=== PATIENT | female | born 2005 | race Caucasian/White ===

== ENCOUNTER 2024-12-05 00:30 | Emergency (ER) | payer SELFPAY ==
--- OUTSIDE RECORDS SUMMARY | 2024-12-05 00:33 | XMS REPORT | Continuity of Care Document ---
Author Name Unknown Address [address] [facility] [address] [place] [address] [facility] [place] Address [address] [facility] [address] [place] [address] Care Team Providers Care Medical Diagnostic Radiographer Name Role Phone Pcp, Patient Does Not Have A Primary Care Physic sneha Campaigns, Generic Provider Attending Clinician ELA Schmidt Attending Clinician ELA Santillan Attending Clinician Ela Santillan DO Attending Clinician [phone] Payers Payer Name Policy Type Policy Number Effective Date Expirati on Date Source Allergies, Adverse Reactions, Alerts Allergy Name Allergy Type Status Severity Reaction(s) Onset Date Inactive Date Treating Clinician Comments Source ORANGE [employer] INGREDI Active Other-Cmnt 2023-08 0-03 00:00: 00 [facility] [place] Propensi ty to adverse reaction s Active Other - See comments 2023-08 0-03 00:00: 00 [facility] Social History Social Habit Start Date Stop Date Quantity Comments Source [facility] at 2005 00:00:00 2005 00:00:00 [facility] Smoking Status Start Date Stop Date Source Tobacco smoking consumption unknown [facility] Vital Signs Vital Name Observation Time Observation Value Comments S rosa Systolic blood pressure 2024-09-24 15:10:00 116 mm[Hg] [facility] Diastolic blood pressure 2024-09-24 15:10:00 79 mm[Hg] [facility] Heart rate 2024-09-24 15:10:00 90 /min [facility] Body temperature 2024-09-24 15:10:00 37.28 Elenita [facility] Respiratory rate 2024-09-24 15:10:00 16 /min [facility] Body height 2024-09-24 15:10:00 157.5 cm [facility] Body weight 2024-09-24 15:10:00 60.328 kg [facility] BMI 2024-09-24 15:10:00 24.33 kg/m2 [facility] Oxygen saturation in Arterial blood by Pulse oximetry 2024-09-24 15:10:00 100 /min [place] [facility] Encounters Start Date/Time End Date/Time Encounter Type Admission Type Attending Clinicians Care Facility Care Department Encounter ID Source 2024-10-06 00:00:00 2024-10-06 11:37:00 Letter (Out) Campaigns, Generic Provider Campaigns, Generic Provider [facility] [id number] [facility] 2024-09-24 09:12:00 2024-09-24 09:55:00 Emergency X ELA CHANG [facility] ERT [id number] [facility] 2024-09-24 09:12:00 2024-09-24 09:55:00 Emergency Ela Chang [facility] [id number] [facility] Notes Date/Time Note Provider Source 2024-09-24 09:38:08 Patient given discharge instructions on influenza symptoms. No prescriptions given. Advised to follow up with pcp. Pt left ER ambulatory with adult. No signs of distress. [facility] 2024-09-24 09:10:09 Patient states: "Yesterday my body was very sore and it got really bad this morning. 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: Medication (comment) BIOINFORMAT[employer] COMPUTER SCIENTIST treatment comments: dayquil at 0800 Travel and Exposure Screening: Symptoms Does patient have any of these symptoms?: (not recorded) Exposure Screening Has patient had contact with someone with a communicable disease in the last month?: (not recorded) Diseases exposed to:: (not recorded) Is Patient ?: (not recorded) Exposure Date: (not recorded) Chief Complaint: Chief Complaint Patient presents with Body Aches History of Present Illness: The patient presents from home for evaluation for cough, fever as well as body aches for the past 2 days. She does admit to sick contacts at home. She had some DayQuil around 8:00 this morning. She does not smoke. No history of asthma. She has had decreased oral intake but is drinking. No ear pain. No throat pain. Here for evaluation. Past Medical History/Immunizations: History reviewed. No pertinent past medical history. Tetanus received in last 5 years: Yes Allergies: Allergies Allergen Reactions [place] Other - See comments Past Social History: Substance & Sexual Activity No substance use or sexual activity history on file. Past Surgical History: History reviewed. No pertinent surgical history. Review of Systems: Review of Systems Constitutional: Positive for chills and fever. HENT: Negative for sore throat. Respiratory: Positive for cough. Cardiovascular: Negative for chest pain. Gastrointestinal: Negative for abdominal pain, nausea and vomiting. Genitourinary: Negative for dysuria. Musculoskeletal: Positive for myalgias. Negative for arthralgias, neck pain and neck stiffness. Skin: Negative for wound. Neurological: Negative for dizziness. Psychiatric/Behavioral: Negative for agitation. Endocrine: Negative for goiter. Physical Exam: ED Triage Vitals [09/24/24 0910] Weight 60.3 kg (133 lb) Actual or estimated Estimated by patient/family report Height 1.575 m (5' 2") BP 116/79 Pulse 90 Resp 16 Temp 37.3 ?C (99.1 ?F) Temp source Oral SpO2 100 % Measured on Room air Physical Exam Vitals and nursing note reviewed. Constitutional: Appearance: Normal appearance. She is normal weight. HENT: Head: Normocephalic and atraumatic. Right Ear: Tympanic membrane, ear canal and external ear normal. Left Ear: Tympanic membrane, ear canal and external ear normal. Nose: Nose normal. Mouth/Throat: Mouth: Mucous membranes are moist. Pharynx: Oropharynx is clear. No oropharyngeal exudate or posterior oropharyngeal erythema. Cardiovascular: Rate and Rhythm: Normal rate and regular rhythm. Pulses: Normal pulses. Pulmonary: Effort: Pulmonary effort is normal. No respiratory distress. Breath sounds: No stridor. No wheezing or rhonchi. Musculoskeletal: General: Normal range of motion. Cervical back: Normal range of motion and neck supple. Skin: General: Skin is warm. Neurological: General: No focal deficit present. Mental Status: She is alert and oriented to person, place, and time. Radiology: No orders to display Lab Results: Lab Results - No data to display EKG: If EKG completed, see Procedure Note. Orders and Treatments: No orders of the defined types were placed in this encounter. No orders of the defined types were placed in this encounter. First Provider Eval: ED Events Date/Time Event User Comments 09/24/24906 Medical Screening Begins ELA CHANG DO -- 09/24/24906 First Provider Evaluation ELA CHANG DO -- ED COURSE Diagnosis/Impression as of 09/24/24 0918 Flu-like symptoms Procedures: Procedures MDM: Medical Decision Making The patient presents from home for evaluation for cough, fever as well as body aches for the past 2 days. She does admit to sick contacts at home. She had some DayQuil around 8:00 this morning. She does not smoke. No history of asthma. She has had decreased oral intake but is drinking. No ear pain. No throat pain. Vital signs are stable in the ER. Her tympanic membranes are pearly spencer. Her pharynx is pink and without exudates erythema. Her lungs are clear. Suspect a viral syndrome. Offered the patient screening for COVID, influenza as well as RSV and she does decline. Recommend she is [id number] cough and cold medications as needed for her symptoms. She remained stable here in the ER and is okay for discharge home with PCP follow-up. Problems Addressed: Flu-like symptoms: acute illness or injury Risk OTC drugs. Flowsheet Documentation: Scoring Tools: No data recorded Disposition/Condition: ED Disposition ED Disposition Discharge Condition Stable Comment -- Discharge Medications: Patient's Medications No medications on file Follow-up: Electronically signed by: Ela Chang DO 09/24/24 0918 [facility]
[2024-12-05] MEDS ORDERED: METHYLPREDNISOLONE 125 MG INJ ONE (01:46)
[2024-12-05] MEDS ORDERED: METOCLOPRAMIDE 10 MG/2mL INJ ONE (01:46)
[2024-12-05] MEDS ORDERED: FAMOTIDINE 20 MG/2 ML VIAL IV ONE (01:46)
[2024-12-05] MEDS ORDERED: NA CHLORIDE 0.9% 1,000 ML ONE ×2 (01:46→03:39)
[2024-12-05] MEDS ORDERED: ONDANSETRON 4 MG (ODT) TAB ONE (02:10)
[2024-12-05 02:29] LABS: Specific Gravity 1.005 (1.005-1.030)
[2024-12-05 02:30] LABS: Specific Gravity 1.005 (1.005-1.030); Sqamous Epithelial <5 /HPF (None Seen); Urine Bacteria None Seen /HPF (<20); Urine Bilirubin NEGATIVE (Negative); Urine Blood Negative (Negative); Urine Clarity Turbid (Clear); Urine Color Colorless (Yellow); Urine Glucose NEGATIVE (Negative); Urine Ketones NEGATIVE (Negative); Urine Micro Reflex YN NO BILL MICROSCOPIC; Urine Mucus Slight /HPF (None Seen); Urine Nitrite NEGATIVE (Negative); Urine Protein NEGATIVE (Negative); Urine RBC None Seen /HPF (None Seen); Urine Urobilinogen Normal (Normal); Urine WBC <5 /HPF (<5); Urine pH 5.5 (5.0-7.0)
[2024-12-05 02:31] LABS: Absolute Lymphocytes (CBC) 2.8 K/uL (0.7-4.9); Absolute Monocytes 0.6 K/uL (0.1-1.3); Absolute Neutrophil 4.8 K/uL (1.8-8.0); Basophils % 0.5 % (0-1.3); Eosinophils % 0.4 % (0-4.4); Hematocrit 39.9 % (36.0-45.0); Hemoglobin 13.6 g/dL (12.0-15.0); Lymphocytes % 33.8 % (15.3-44.8); MCH 26.7 pg (27.0-35.0); MCHC 34.1 g/dL (32.0-36.0); MCV 78.5 fL (80-100); MPV 7.6 fL (7.6-11.3); Monocytes % 6.8 % (3.3-12.3); Neutrophils % 58.5 % (41.7-73.7); Platelets 347 thou/uL (152-406); RBC Red Blood Cell Count 5.07 M/uL (3.86-4.86); Red Cell Distribution Width 13.4 % (12.1-15.2)
[2024-12-05 02:41] LABS: Anion Gap 9.6 mEq/L (5.0-15.0); Potassium 3.6 mEq/L (3.5-5.1)
--- NOTE | 2024-12-05 04:11 | ER ---
Nurse's Notes [facility] Name: Art Anthony Age: 19 yrs Sex: Female : 2005 Arrival Date: 12/05/2024 Time: 00:30 Bed 16 Private MD: Diagnosis: Acute allergic reaction, Presentation: 12/05 02:34 Chief complaint: Patient states: per patient and ems , allergic reaction to drink that kd4 has orange in it, Allergic to orange, EPI and benadryl given per ems IM, difficulty breathing per ems on scene. Patient respond to treatment and in ED a/o x 4, NAD. Coronavirus screen: Client denies travel out of the [place] in the last 14 days. Ebola Screen: Patient negative for fever greater than or equal to 101.5 degrees Fahrenheit, and additional compatible Ebola Virus Disease symptoms. Onset: The symptoms/episode began/occurred acutely. Anaphylaxis evaluation, the patient reports or I have noted the following symptoms which indicate a significant risk of anaphylaxis: . The patient has been moved to a treatment room and the charge nurse or attending physician has been notified. Initial Sepsis Screen: Does the patient meet any 2 criteria? No. Patient's initial sepsis screen is negative. Does the patient have a suspected source of infection? No. Patient's initial sepsis screen is negative. Risk Assessment: Do you want to hurt yourself or someone else? Patient reports no desire to harm self or others. Onset of symptoms was December 05, 2024. 02:34 Method Of Arrival: EMS kd4 02:34 Acuity: JALEN 3 kd4 Triage Assessment: 05:13 General: Appears in no apparent distress. Behavior is calm, cooperative. Neuro: No kd4 deficits noted. Cardiovascular: No deficits noted. Respiratory: No deficits noted. 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 - Infectious Disease History:: Denies. - Social history:: Smoking status: Patient/guardian denies using. Screenin:25 Nutritional screening: No deficits noted. Tuberculosis screening: No symptoms or risk kd4 factors identified. 05:15 [facility] ED Fall Risk Assessment (Adult) History of falling in the last 3 months, kd4 including since admission No falls in past 3 months (0 pts) Confusion or Disorientation No (0 pts) Intoxicated or Sedated No (0 pts) Impaired Gait No (0 pts) Mobility Assist Device Used No (0 pt) Altered Elimination No (0 pt) Score/Fall Risk Level 0 - 2 = Low Risk Oriented to surroundings. Abuse screen: Denies threats or abuse. Assessment: 03:24 Pain: Denies pain. Neuro: No deficits noted. Respiratory: Airway is patent Respiratory kd4 effort is even, unlabored, Breath sounds are clear. 05:17 General: Appears in no apparent distress. Behavior is calm, cooperative. General: BP kd4 notified to MD, Ok to D/C. GI: No signs and/or symptoms were reported involving the gastrointestinal system. : No signs and/or symptoms were reported regarding the genitourinary system. Vital Signs: 00:38 BP 127 / 67; Pulse 106; Resp 19; Temp 98; Pulse Ox 100% ; Weight 62.14 kg; Height 5 ft. hw 2 in. ; 03:25 Pulse 84; Resp 16; kd4 03:50 BP 81 / 50; Pulse 79; Resp 16 S; Pulse Ox 98% on R/A; lg3 04:55 BP 94 / 50; Pulse 68; Resp 18; Temp 98.1; Pulse Ox 98% on R/A; Pain 0/10; kd4 05:00 BP 92 / 58; kd4 00:38 Body Mass Index 25.06 (62.14 kg, 157.48 cm) hw 04:55 Pain Scale: Adult kd4 [place] Coma Score: 03:25 Eye Response: spontaneous(4). Motor Response: obeys commands(6). Verbal Response: kd4 oriented(5). Total: 15. ED Course: 00:31 Patient arrived in ED. jj6 00:36 Joni Garcia PA is PHCP. cp 00:36 Carlos Romano MD is Attending Physician. cp 00:42 Monica Rowe, VERN is Primary Nurse. kd4 01:33 EKG done, by ED staff. hw 02:22 Inserted saline lock: 22 gauge in right upper arm, using aseptic technique. Blood vc1 collected. Flushed with 10 mL NS. 02:37 Triage completed. kd4 03:25 Patient has correct armband on for positive identification. Bed in low position. Call kd4 light in reach. Side rails up X 1. 05:13 Patient NA. EKG completed in triage. Results shown to MD. kd4 05:15 No provider procedures requiring assistance completed. IV discontinued. kd4 05:17 Provided Education on: d/c instruction, medication , follow up care. kd4 Administered Medications: 02:21 Drug: NS 0.9% IV 1000 ml IV at 1 bolus Per protocol; to be given as a bolus over 60 vc1 minutes Route: IV; Rate: 1 bolus; Site: right upper arm; 05:19 Follow up: IV Status: Completed infusion kd4 02:21 Drug: MethylPrednisoLONE IVP 125 mg IVP once Route: IVP; Site: right upper arm; vc1 05:19 Follow up: Response: No adverse reaction kd4 02:21 Drug: Famotidine IVP 20 mg IVP once; dilute with 10 mL 0.9% NaCl; give over 2 minutes vc1 Route: IVP; Site: right upper arm; 05:19 Follow up: Response: No adverse reaction kd4 02:22 Drug: metoCLOPramide IVP 10 mg IVP once; over 1 to 2 minutes Route: IVP; Site: right vc1 upper arm; 05:19 Follow up: Response: No adverse reaction kd4 02:24 Drug: Ondansetron PO 4 mg PO once Route: PO; vc1 05:18 Follow up: Response: No adverse reaction kd4 03:51 Drug: NS 0.9% IV 1000 ml IV at 1000 ml once; to be given as a bolus over 60 minutes lg3 Route: IV; Rate: 1000 ml; Site: right upper arm; 05:18 Follow up: IV Status: Completed infusion kd4 Medication: 03:25 VIS not applicable for this client. kd4 Outcome: 04:10 Discharge ordered by . sp4 05:16 Discharged to home ambulatory, with family, kd4 05:16 Condition: good 05:16 Discharge instructions given to patient, Instructed on discharge instructions, follow up and referral plans. Demonstrated understanding of instructions, follow-up care, medications, Prescriptions given X 2, 05:19 Patient left the ED. kd4 Signatures: Joni Garcia PA PA cp Able, Lacie, RN RN lg3 Sherry Coles6 Kimberly Deleon RN RN vc1 Carlos Romano MD MD sp4 Monica Rowe RN RN kd4 Carol Carrasco Corrections: (The following items were deleted from the chart) 03:16 03:15 BP 96 / 74; Pulse 59bpm; Pulse Ox 97% RA; kd4 kd4
--- NOTE | 2024-12-05 04:11 | EDPHYS ---
Physician Documentation [facility] Name: Art Anthony Age: 19 yrs Sex: Female : 2005 Arrival Date: 12/05/2024 Time: 00:30 Bed 16 Private MD: ED Physician Carlos Romano HPI: 12/05 00:40 This 19 yrs old Female presents to ER via Unassigned with complaints of Allergic cp Reaction. 00:40 The patient presents with shortness of breath. Onset: The symptoms/episode cp began/occurred suddenly, just prior to arrival. 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 consumed drink containing orange juice at local bar. 00:42 EMS administered Epinephrine injection and 50 mg Benadryl IM. 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 - Infectious Disease History:: Denies. - Social history:: Smoking status: Patient/guardian denies using. ROS: 00:45 Constitutional: Negative for body aches, chills, fever, poor PO intake, cp 00:45 Eyes: Negative for injury, pain, redness, and discharge, cp 00:45 ENT: Negative for difficulty swallowing, difficulty handling secretions, 00:45 Cardiovascular: Negative for chest pain, palpitations, 00:45 Respiratory: Positive for shortness of breath, at rest. Negative for cough, wheezing, 00:45 Abdomen/GI: Positive for nausea, Negative for active vomiting, 00:45 Neuro: Negative for altered mental status, 00:45 All other systems are negative, Exam: 00:48 Head/Face: Normocephalic, atraumatic. cp 00:48 Constitutional: The patient appears in no acute distress, alert, awake, non-diaphoretic, non-toxic, well developed, well nourished, 00:48 Eyes: Periorbital structures: appear normal, Pupils: equal, round, and reactive to light and accomodation, Extraocular movements: intact throughout, Conjunctiva: normal, no exudate, no injection, Sclera: no appreciated abnormality, Lids and lashes: appear normal, bilaterally, 00:48 ENT: External ear(s): are unremarkable, Nose: is normal, Mouth: Lips: moist, Oral mucosa: moist, Posterior pharynx: Airway: no evidence of obstruction, patent, 00:48 Neck: ROM/movement: is normal, is supple, without pain, no range of motions limitations, 00:48 Chest/axilla: Inspection: normal, 00:48 Cardiovascular: Rate: tachycardic, Rhythm: regular, 00:48 Respiratory: the patient does not display signs of respiratory distress, Respirations: labored breathing, is not present, shallow respirations, are not present, 00:48 Abdomen/GI: Inspection: abdomen appears normal, Palpation: abdomen is soft and non-tender, in all quadrants, 00:48 Skin: no rash present. 00:48 Neuro: Orientation: to person, place \T\ time. Mentation: is normal, 01:00 ECG was reviewed by the Attending Physician. Vital Signs: 00:38 BP 127 / 67; Pulse 106; Resp 19; Temp 98; Pulse Ox 100% ; Weight 62.14 kg; Height 5 ft. hw 2 in. ; 03:25 Pulse 84; Resp 16; kd4 03:50 BP 81 / 50; Pulse 79; Resp 16 S; Pulse Ox 98% on R/A; lg3 04:55 BP 94 / 50; Pulse 68; Resp 18; Temp 98.1; Pulse Ox 98% on R/A; Pain 0/10; kd4 05:00 BP 92 / 58; kd4 00:38 Body Mass Index 25.06 (62.14 kg, 157.48 cm) hw 04:55 Pain Scale: Adult kd4 [place] Coma Score: 03:25 Eye Response: spontaneous(4). Motor Response: obeys commands(6). Verbal Response: kd4 oriented(5). Total: 15. MDM: 00:36 Medical Screening Exam initiated cp 01:00 Differential diagnosis: anaphylaxis, angioedema, urticaria. cp 12/05 00:39 Order name: CBC with Diff; Complete Time: 04:03 cp 12/05 00:39 Order name: BMP; Complete Time: 04:03 cp 12/05 00:39 Order name: Urinalysis W/Microscopic; Complete Time: 04:03 cp 12/05 00:39 Order name: Test, Urine; Complete Time: 04:03 cp 12/05 00:39 Order name: EKG - Nurse/Tech; Complete Time: 01:32 cp 12/05 00:39 Order name: IV; Complete Time: 02:21 cp EC:00 Rate is 77 beats/min. Rhythm is regular. [place] interval is normal. QRS interval is cp prolonged at 112 msec. QT interval is normal. T waves are Inverted in lead aVR. Interpreted by me. Reviewed by me. Administered Medications: 02:21 Drug: NS 0.9% IV 1000 ml IV at 1 bolus Per protocol; to be given as a bolus over 60 vc1 minutes Route: IV; Rate: 1 bolus; Site: right upper arm; 05:19 Follow up: IV Status: Completed infusion kd4 02:21 Drug: MethylPrednisoLONE IVP 125 mg IVP once Route: IVP; Site: right upper arm; vc1 05:19 Follow up: Response: No adverse reaction kd4 02:21 Drug: Famotidine IVP 20 mg IVP once; dilute with 10 mL 0.9% NaCl; give over 2 minutes vc1 Route: IVP; Site: right upper arm; 05:19 Follow up: Response: No adverse reaction kd4 02:22 Drug: metoCLOPramide IVP 10 mg IVP once; over 1 to 2 minutes Route: IVP; Site: right vc1 upper arm; 05:19 Follow up: Response: No adverse reaction kd4 02:24 Drug: Ondansetron PO 4 mg PO once Route: PO; vc1 05:18 Follow up: Response: No adverse reaction kd4 03:51 Drug: NS 0.9% IV 1000 ml IV at 1000 ml once; to be given as a bolus over 60 minutes lg3 Route: IV; Rate: 1000 ml; Site: right upper arm; 05:18 Follow up: IV Status: Completed infusion kd4 Disposition: 04:09 Co-signature as Attending Physician, Carlos Romano MD I agree with the assessment sp4 and plan of care. I reviewed the patient's care provided by Advanced Practice Provider \T\ agree w/ the diagnosis \T\ care plan. I personally saw the pt \T\ performed a substantive portion of the visit, incldng all aspects of the (History/Exam/Medical Decision Making). Disposition Summary: 12/05/24 04:10 Discharge Ordered Notes: Location: Home sp4 Problem: new sp4 Symptoms: have improved sp4 Condition: Stable sp4 Diagnosis - Acute allergic reaction, sp4 Followup: sp4 - With: Private Physician - When: As needed - Reason: Recheck today's complaints Discharge Instructions: - Discharge Summary Sheet sp4 - Food Allergy, Jhyf-rh-[id number] sp4 Forms: - Patient Portal Instructions sp4 Prescriptions: - EpiPen 0.3 mg/0.3 mL Injection Auto-Injector - administer 0.3 milliliter INTRAMUSCULAR route every 10 minutes as needed for sp4 anaphylaxis; for 2 doses, Dispense 2 pack with Training device; 2 Pack; Refills: 0, Product Selection Permitted - Prednisone 20 mg Oral Tablet - take 2 tablets ORAL route once daily for 5 days; 10 tablet; Refills: 0, Product sp4 Selection Permitted Signatures: Dispatcher [employer] EDMS Joni Garcia PA PA cp Able, Lacie, RN RN lg3 Kimberly Deleon, RN RN vc1 Carlos Romano MD MD sp4 Monica Rowe RN RN kd4 Corrections: (The following items were deleted from the chart) 00:40 00:40 CBC+H.LAB.BRZ ordered. EDMS EDMS 00:40 00:40 BASIC METABOLIC PANEL+C.LAB.BRZ ordered. EDMS EDMS 00:40 00:40 Urinalysis W/Microscopic+U.LAB.BRZ ordered. EDMS EDMS 00:40 00:40 Test, Urine+UC.LAB.BRZ ordered. EDMS EDMS 02:26 00:44 TEST, SERUM+SC.LAB.BRZ ordered. EDMS EDMS
[2024-12-05 05:36] VITALS: O2SAT 98
[2024-12-05 05:37] VITALS: TEMP 98.1
[2024-12-05 05:38] VITALS: BP 92/58
--- NOTE | 2024-12-08 12:50 | EKG ---
Test Date: 2024-12-05 Test Time: 00:53:32 Extermination Supervisor: ELISEO MEASUREMENT RESULTS: Intervals: Rate: 77 CT: 136 QRSD: 112 QT: 384 QTc: 434 Zullinger: P: 70 CT: 136 QRS: 88 T: 66 INTERPRETIVE STATEMENTS: Normal sinus rhythm Incomplete right bundle branch block Borderline ECG No previous ECG available for comparison Electronically Signed On 12-08-24 12:41:21 CDT by Loki Akins
== END 2024-12-05 05:19 | disposition home or self-care (01) ==
LOC: ER 00:30
DX: R06.02 Shortness of breath (principal); Z91.02 Food additives allergy status
CPT/HCPCS: 36415; 80048; 81001; 81025; 85025; 93005; 96361; 96374; 96375; 99285; J2765; J2919; J7030; Q0162